=== PATIENT | male | born 1965 | race Caucasian/White ===

== ENCOUNTER 2024-10-21 14:22 | Observation (INO) | payer BC, SELFPAY ==
[2024-10-21] VITALS (12 sets, daily range): BP systolic 148–183; BP diastolic 56–97; PULSE 45–72; RESP 16–18; TEMP 36.1–37.1; O2SAT 96–98; BMI 23.4; BMI 23.5
--- NOTE | 2024-10-21 11:50 | EKG12_ITS ---
Test Reason : PRE OP Blood Pressure : */* mmHG Vent. Rate : 58 BPM Atrial Rate : 58 BPM P-R Int : 152 ms QRS Dur : 94 ms QT Int : 432 ms P-R-T Axes : 37 53 56 degrees QTcB Int : 424 ms Sinus bradycardia Nonspecific ST abnormality Abnormal ECG No previous ECGs available Confirmed by OSORIO WHITE, ESTELA ([id number]), editorial manager JAYCEE MANN ([id number]) on 10/25/2024 6:49:08 AM Referred By: Michael Pat Confirmed By: ESTELA AC MD
[2024-10-21] MEDS: Lactated Ringers 1,000 ML 15 ML IV (12:18)
--- NOTE | 2024-10-21 13:17 | PRE.ANES_ITS ---
ASA Classification* ASA Classification ASA Classification: 2 Assessment & Plan Anesthesia* Anesthesia Assessment Anesthesia Assessment: Discussed sedation and/or anesthesia options, risks, benefits, and alternatives with patient/parents/legal guardian/POA. Questions invited. The patient/parents/legal guardian/POA seems to understand and agrees to proceed with anesthesia plan. Reviewed the physical assessment, medical history, allergy history and patient home medications list prior to surgery/procedure/anesthetic and documented any changes. Performed airway and anesthesia risk assessments. Anesthesia Type Anesthesia Type: General History Source History Obtained from:: Patient and Chart Anesthesia Focused Assessment* Temperature: 98.8 F Pulse Rate: 66 Blood Pressure: 161/80 Respiratory Rate: 16 Pulse Ox: 98 Oxygen Delivery Method: Room Air Airway Assessment Mouth opens: >3 cm Mallampati Score: I Teeth Condition: Missing (Patient has multiple missing teeth. 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 When Was Last Pacemaker Check QUESTION #4 FULL TEXT: You/Your Family Experience fever (hyperthermia) with Anesthesia Last Oral Intake Last Oral intake: Last Oral Intake NPO since 07:00 10/21/24 12:15 Meds taken in AM with sips of water? 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 Female No 10/18/24 15:35 HX of Motion Sickness No 10/18/24 15:35 HX of N/V After Surgery No 10/18/24 15:35 Non-Smoker Yes 10/18/24 15:35 Duration of Surgery greater Yes 10/18/24 15:35 than 60 minutes Number of Risk Factors 2 10/18/24 15:35 PONV Score Moderate Risk 10/18/24 15:35 Height & Weight Height & Weight: Anesthesia: Height & Weight Height 5 ft 9 in 10/21/24 12:15 Weight: 72 kg 10/21/24 12:15 Body Mass Index (BMI) 23.4 10/21/24 12:15 Respiratory Assessment Respiratory Assessment - cutting and creasing press operator: Respiratory Tract Infection Hx - cutting and creasing press operator Hx Respiratory Tract Infection No 10/18/24 15:35 STOP Sleep Apnea STOP Sleep Apnea - cutting and creasing press operator: STOP Sleep Apnea - cutting and creasing press operator Hx Hypertension No 10/18/24 15:35 Hx Sleep Apnea No 10/18/24 15:35 CPAP BIPAP Do you snore loudly (louder No 10/18/24 15:35 than talking or can be heard Do you often feel tired/ No 10/18/24 15:35 fatigued/ sleepy during daytime? Has anyone observed you stop No 10/18/24 15:35 breathing during sleep? STOP Results Negative 10/18/24 15:35 QUESTION #5 FULL TEXT : Do you snore loudly (louder than talking or can be heard through closed doors)? 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 Specify any problems Hx of Preganancy in last 3 N/A 10/18/24 15:35 Months Nurse Filling Out Transfusion [id number] 10/18/24 15:35 & Questions: Date: 10/18/24 10/18/24 15:35 Time: 15:38 10/18/24 15:35 Patient unable to answer at this time (ie. confused, unrespo /Reproduction History /Reproductive History - cutting and creasing press operator: /Reproductive Hx- cutting and creasing press operator Hx Now Gestational Age (in weeks): EDC: Hx Hx Para Hx Section SAB Active Medications Active Medications: Current Medications Generic Name Dose Route Start Last Admin Trade Name Freq PRN Reason Stop Dose Admin Cefazolin Sodium 2 gm/ Sodium 110 mls @ 200 mls/hr 10/21/24 12:50 Chloride IV 10/21/24 13:22 INTRAOP ONE Lactated Ringer's 1,000 mls @ 15 mls/hr 10/21/24 12:00 10/21/24 12:18 IV 15 mls/hr .Q48H SRINIVAS Administration PFSH Medical History Marijuana use Inguinal hernia Former smoker Home Medications Medication Instructions Recorded Last Taken Type cephalexin 500 mg capsule 500 mg PO Q8 10/18/24 08:00 History tamsulosin 0.4 mg capsule 0.4 mg PO QHS 10/18/2410/20 19:00 History Allergy/AdvReac Type Severity Reaction Status Date / Time No Known Allergies Allergy Verified 10/21/24 12:14 Surgical History (Updated 10/18/24 @ 15:43 by Ortega Bennett) H/O wrist surgery H/O knee surgery Social History Smoking Status: Former smoker Review of Systems (Anesthesia) ROS Narrative System reviewed and no additional complaints, except as documented.
--- NOTE | 2024-10-21 14:00 | PROS_PTH ---
PATIENT: BOBY BOSS LOC: MS3 U#:[id number] AGE/SX: 59/M [place] [facility] [place]: Dr. Michael Pat MD : [id number] BED: 1 DIS: 10/22/2024 SPEC #: [id number] RECD: 10/21/24 17:38 STATUS: MARY PRADHAN #: [id number] TAMEKA: 10/21/24 14:[address]: Michael Pat DEPT: SURGICAL PATHOLOGY RECD BY: Abner Wilkins ENTERED: 10/24/24 09:38 SP TYPE: TURP OT DR: Danisha Primary Care Phys Tissues: A - Prostate, NOS Procedures: Surgery Specimen Level IV HEADER OPERATION: Cystoscopy, transurethral resection of prostate PRE-OP DIAGNOSIS: Benign prostatic hyperplasia with obstruction TISSUE SUBMITTED: A- Prostate tissue MICROSCOPIC DIAGNOSIS A. 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 MICROSCOPIC DESCRIPTION Slides are reviewed. GROSS DESCRIPTION A. Received in formalin labeled with the patient's name and date of . Designated as " prostate tissue" is a 26.8 g, 7.2 x 7.2 x 1.8 cm aggregate of irregular, aranda, rubbery and cauterized tissue fragments. Printing Film Stripper sections are submitted in 10 cassettes. AK 10/24/2024 CPT:61061
--- NOTE | 2024-10-21 14:28 | PCM.DC ---
Discharge Instructions Diet Discharge Diet: No restrictions DC O2, CPAP, BIPAP needs Home O2 Discharge instructions: No Dressing / Incision Discharge Activity: Return to Normal Activity Dressing / Incision Call your doctor if you observe: Fever of 101 or Higher Follow Up Care Please Follow Up With: Michael Pat MD When: Call [phone] for an appointment Test Results: Test results from this visit will be discussed in further detail at your follow-up appointment, if applicable. Discharge Plan Admission Primary Reason for Your Visit: turp Attending Provider: Michael Pat Primary Care Provider: Danisha Ansari Primary Instructions Print Language: Congolese Discharge Orders/Prescriptions Prescriptions: New ciprofloxacin HCl [Cipro] 500 mg tablet 500 mg PO BID Qty: 14 0RF Discontinued tamsulosin 0.4 mg capsule 0.4 mg PO QHS cephalexin 500 mg capsule 500 mg PO Q8 Patient Comments: LAST DOSE 10/20/26 Referrals / Follow Up: Care Physician,No Primary [Primary Care Provider] - Disposition Disposition (needs filled in before D/C Order can be placed): Home, Self Care
[2024-10-21] MEDS: Cefazolin 2 GM in 0.9% Normal Saline (100mL Bag) 100 ML IV (14:41)
--- NOTE | 2024-10-21 16:02 | PCM.OPRPT ---
Operative Report (Standard) Operative Information Date of Procedure: 10/21/24 Pre-Operative Diagnosis: BPH with obstruction Post-Operative Diagnosis: Same Surgery/Procedure Performed: Transurethral resection of prostate vat washer: No Type of Anesthesia: General RN Documented Start/Stop Times: Operation Date: 10/21/24 14:00 Case Time Into Pre-Op 10/21/24 11:52 Anesthesia Start 10/21/24 14:32 Into Room 10/21/24 14:32 Procedure Start 10/21/24 14:43 Procedure End 10/21/24 15:58 Procedure Start Time: 14:43 Procedure Stop Time: 16:02 Select all DRAINS/GRAFTS/IMPLANTS that apply: Drains Drain details: 22 Citizen Of [place] three-way Ocasio Estimated Blood Loss: Minimal Specimen collected: No Description of surgery: Same 59-year-old gentleman who has not been able to urinate on cystoscopy is found to have a very large obstructive prostate large median lobe and large lobe that is causing significant bother up ball-valve obstruction so organ to proceed with a TURP patient was taken back to the operating room after induction of anesthesia he is placed supine on the table placed in dorsolithotomy position and Ocasio catheter was removed went into the bladder with a 26 Citizen [place] continuous-flow resectoscope identified the verumontanum had a very large median lobe very large lobe coming from the anterior part of the prostate I then identified the right and left ureteral orifice and then very carefully resected the median lobe to avoid any injury to the left and right ureteral orifice I then resected back to the verumontanum resected the right lobe of the prostate resect the left lobe of the prostate and then resected the anterior part of the prostate this broke off the valve valve made a little difficult at the resected tissue in the bladder because of his free-floating I then cauterized the prostate open wide open and a nice wide open channel sphincter was intact patient anesthetic was reversed I did a flow test had a nice open flow cauterized the prostate for hemostasis three-way catheter was put in the bladder for continuous irrigation he was kept overnight for irrigation we will do a voiding trial tomorrow morning Surgical Findings: Very large obstructive prostate with ball valving obstruction both anterior and posterior the prostate Complications Complications: No Admit VTE Documentation VTE Present on Admission: No VTE Mechan Device Prophylaxis: SCD's VTE Pharm Prophylaxis ordered?: No
--- NOTE | 2024-10-21 16:46 | PCM.POST.ANE ---
Anesthesia: Postop Eval I Current Vital Signs Temperature: 97 F Pulse Rate: 59 Blood Pressure: 161/88 Respiratory Rate: 18 Pulse Ox: 96 Oxygen Delivery Method: Room Air Assessment Airway patent: Yes Spontaneous unlabored respirations: Yes Mental status: Awake nausea: No Vomiting: No Anesthesia Complication: No Fluid Hydration Crystalloid volume administer (ml): 1,000 Total IV fluid infused: 1,000 Progress Note Anesthesia document: Postop Eval 1 completed: Yes
[2024-10-21] MEDS: 0.9% Normal Saline (1000mL) 1,000 ML 125 ML IV (18:58)
[2024-10-21] MEDS: Ciprofloxacin 500 MG Tablet PO (22:20)
[2024-10-21] MEDS: Docusate Sodium 100 MG Capsule 200 MG PO (22:20)
[2024-10-21] MEDS: Ketorolac 15 MG/ML Vial IV (22:37)
[2024-10-21] MEDS: 0.9% Saline Lock 10 ML Syringe IV (22:37)
[2024-10-22] MEDS: 0.9% Normal Saline (1000mL) 1,000 ML 125 ML IV (02:41)
[2024-10-22 02:43] VITALS: BP 148/79; PULSE 51; RESP 16; TEMP 36.8; O2SAT 97
[2024-10-22 06:13] LABS: Absolute Lymphocyte Count 2.12 X10^3/uL (0.83-4.51); Absolute Neutrophil Count 5.8 X10^3/uL (2.0-7.7); Basophil# 0.04 X10^3/uL; Basophil% 0.5 % (0-1); Eosinophil# 0.14 X10^3/uL; Eosinophils% 1.6 % (0-5); Hematocrit 36.4 % (40-54); Hemoglobin 12.4 g/dL (13.0-16.5); Lymphocyte # 2.12 X10^3/ul (0.83-4.51); Lymphocyte % 24.2 % (19-41); Mean Corp Hgb Conc 34.1 g/dL (32-36); Mean Corpuscular Hgb 30.8 pg (27.0-32.0); Mean Corpuscular Volume 90.3 fL (80-94); Mean Platelet Vol. 9.9 fl (6.2-12.0); Monocyte# 0.61 X10^3/uL; NRBC Flagged by Analyzer 0 % (0-5); Neutrophil # 5.81 X10^3/uL (2.7-7.7); Neutrophil % 66.2 % (47-70); Platelet Count 247 K/mm3 (150-450); RBC Distribution Width SD 43.2 fl (35.1-43.9); Red Blood Count 4.03 M/mm3 (4.6-6.2); White Blood Count 8.8 K/mm3 (4.4-11.0)
[2024-10-22 07:09] LABS: Anion Gap 10 (5-15); BUN 10 mg/dL (4-19); BUN/Creat Ratio 10.7 RATIO (10-20); Calcium,Total 8.1 mg/dL (7.6-11.0); Carbon Dioxide 21.7 mmol/L (21.0-32.0); Chloride 106 mmol/L (98-108); Creatinine, Serum 0.95 mg/dL (0.70-1.20); EST Glomerular Filtration Rate 92 (>60); Glucose 84 mg/dL (70-99); Potassium 3.5 mmol/L (3.3-5.1); Sodium Level 138 mmol/L (133-145)
[2024-10-22] MEDS: Docusate Sodium 100 MG Capsule 200 MG PO (07:49)
[2024-10-22] MEDS: Ciprofloxacin 500 MG Tablet PO (07:49)
--- NOTE | 2024-10-22 08:09 | PCM.PN.GU ---
Subjective Subjective Status post TURP the urine is nice and clear we can remove the Ocasio catheter as long as he can urinate okay can go home today Objective Data Objective Data Vital Signs: Vital Signs Temp Pulse Resp BP Pulse Ox O2 Del Method 98.3 F 51 L 16 148/79 H 97 Room Air 10/22/24 02:43 10/22/24 02:43 10/22/24 02:43 10/22/24 02:43 10/22/24 02:43 10/22/24 02:43 Oxygen Delivery Method Room Air Weight: 72 kg Body Mass Index (BMI) 23.5 Intake & Output: Intake and Output for Last 24 Hours 10/20/24 10/21/24 10/22/24 23:59 23:59 23:59 Intake Total 100.5 / 100.5 1764.58 / 1764.58 Output Total 1900 / 1900 Balance 100.5 / 100.5 -135.42 / -135.42 Lab / Micro Data 10/22/24 Unknown 10/22/24 05:57 Labs: Laboratory Results - last 24 hr 10/22/24 05:57: Sodium 138, Potassium 3.5, Chloride 106, Carbon Dioxide 21.7, Anion Gap 10, BUN 10, Creatinine 0.95, Estim Creat Clear Calc 81.00, Est GFR (MDRD) Non-Af 92, BUN/Creatinine Ratio 10.7, Glucose 84, Calcium 8.1 10/22/24 : WBC 8.8, RBC 4.03 L, Hgb 12.4 L, Hct 36.4 L, MCV 90.3, MCH 30.8, MCHC 34.1, RDW Std Deviation 43.2, RDW Coeff of Krystina 13.0, Plt Count 247, MPV 9.9, Immature Gran % (Auto) 0.500, Neut % (Auto) 66.2, Lymph % (Auto) 24.2, [place] % (Auto) 7.0, Eos % (Auto) 1.6, Baso % (Auto) 0.5, Absolute Neuts (auto) 5.8, Absolute Lymphs (auto) 2.12, Nucleated RBC % 0
[2024-10-22 08:10] VITALS: BP 162/83; PULSE 83; RESP 16; TEMP 36.6; O2SAT 97
--- NOTE | 2024-10-22 08:10 | DCINST_ITS ---
Discharge Instructions Diet Discharge Diet: No restrictions DC O2, CPAP, BIPAP needs Home O2 Discharge instructions: No Dressing / Incision Return to work on:: 11/05/24 Lifting Restrictions: may do light duty, no lifing over 20 lbs Dressing / Incision Call your doctor if you observe: Fever of 101 or Higher, Uncontrolled pain and - (unable to void) Suture Line Care: Avoid Pulling/Pushing and Avoid Pinching/Bending Follow Up Care Please Follow Up With: Michael Pat MD When: Call [phone] for an appointment Test Results: Test results from this visit will be discussed in further detail at your follow- up appointment, if applicable. Discharge Plan Admission Admit Date/Time: 10/21/24 14:22 Primary Reason for Your Visit: turp Attending Provider: Michael Pat Primary Care Provider: Danisha Ansari Primary Discharge Orders/Prescriptions Prescriptions: New ciprofloxacin HCl [Cipro] 500 mg tablet 500 mg PO BID Qty: 14 0RF Discontinued tamsulosin 0.4 mg capsule 0.4 mg PO QHS cephalexin 500 mg capsule 500 mg PO Q8 Patient Comments: LAST DOSE 10/20/26 Referrals / Follow Up: Care Physician,No Primary [Primary Care Provider] - Disposition Discharge Orders: Discharge Patient (Routine); Ordered 10/22/24 Ordered By: Dr. Michael Pat
[2024-10-22 08:13] VITALS: BP 162/83; PULSE 56; RESP 16; TEMP 36.6; O2SAT 97
--- NOTE | 2024-10-24 10:29 | POSTOPAN2_ITS ---
Anesthesia Postop Eval I Sum Postop Eval Completion status Anesthesia document: Postop Eval 1 completed: Yes Anesthesia Postop Eval I Summary Anesthesia Postop Eval I Summary: Anesthesia Postop Eval I: Assessment Summary Airway patent Yes 10/21/24 16:46 [email or web address] Spontaneous unlabored Yes 10/21/24 16:46 PROFESSIONAL [email or web address] respirations Mental status Awake 10/21/24 16:46 PROFESSIONAL [email or web address] nausea No 10/21/24 16:46 PROFESSIONAL [email or web address].ACAR Vomiting No 10/21/24 16:46 PROFESSIONAL [email or web address].ACAR Anesthesia Postop Eval I: Fluid Summary Crystalloid volume administer 1,000 10/21/24 16:46 PROFESSIONAL [email or web address].ACAR (ml) Colloids volume administered ( ml) Blood Product volume administered (ml) Total IV fluid infused 1,000 10/21/24 16:46 PROFESSIONAL [email or web address].ACAR Anesthesia Postop Eval I: Summary Notes Anesthesia Complication No 10/21/24 16:46 PROFESSIONAL [email or web address].ACAR Anesthesia Complication Comment: Post-operative progress note Anesthesia: Postop Eval II Evaluation Mental status: Awake and Calm Pain Level: 1 nausea: No Vomiting: No Complications Anesthesia Complication: No
--- NOTE | 2024-10-24 10:29 | PCM.POSTANE2 ---
Anesthesia Postop Eval I Sum Postop Eval Completion status Anesthesia document: Postop Eval 1 completed: Yes Anesthesia Postop Eval I Summary Anesthesia Postop Eval I Summary: Anesthesia Postop Eval I: Assessment Summary Airway patent Yes 10/21/24 16:46 SUPERVISOR [email or web address] Spontaneous unlabored Yes 10/21/24 16:46 SUPERVISOR [email or web address].ACAR respirations Mental status Awake 10/21/24 16:46 SUPERVISOR [email or web address].ACAR nausea No 10/21/24 16:46 SUPERVISOR PLASMA.ACAR Vomiting No 10/21/24 16:46 SUPERVISOR PLASMA.ACAR Anesthesia Postop Eval I: Fluid Summary Crystalloid volume administer 1,000 10/21/24 16:46 SUPERVISOR [email or web address].ACAR (ml) Colloids volume administered ( ml) Blood Product volume administered (ml) Total IV fluid infused 1,000 10/21/24 16:46 SUPERVISOR PLASMA.ACAR Anesthesia Postop Eval I: Summary Notes Anesthesia Complication No 10/21/24 16:46 SUPERVISOR PLASMA.ACAR Anesthesia Complication Comment: Post-operative progress note Anesthesia: Postop Eval II Evaluation Mental status: Awake and Calm Pain Level: 1 nausea: No Vomiting: No Complications Anesthesia Complication: No
== END 2024-10-22 09:15 | disposition home or self-care (01) ==
LOC: SDC 16:59 → MS3 16:59
PROVIDERS: Admitting Provider Urology; Referring Provider Urology; Visit Provider Urology
PROC: (CPT 52601; principal; 2024-10-21 13:50)
DX: N40.1 Benign prostatic hyperplasia with lower urinary tract symptoms (principal); N13.8 Other obstructive and reflux uropathy; R33.8 Other retention of urine; Z87.891 Personal history of nicotine dependence
CPT/HCPCS: 52601; 00914; 80048; 85025; 88305; 93005; 96361; 96374; 99221; A4216; G0378; J2405